=== PATIENT | male | born 1980 | race Hispanic/Latino ===

== ENCOUNTER 2020-11-14 10:04 | Inpatient (IN) | payer OTHER, SELFPAY ==
[~2020-11-14] VITALS: Ht 167.6 cm; Wt 127.0 kg
[2020-11-14 10:27] LABS: APPEARANCE,URINE Clear (CLEAR); BILIRUBIN,URINE Negative (NEGATIVE); COLOR,URINE Yellow (YELLOW); GLUCOSE, URINE (UA) Negative (NEGATIVE); KETONES,URINE Negative (NEGATIVE); LEUKOCYTE ESTERASE ,URINE Negative (NEGATIVE); NITRATE,URINE Negative (NEGATIVE); OCCULT BLOOD,URINE Negative (NEGATIVE); PH,URINE 5.5 (5.0-8.0); PROTEIN,URINE POS 2+ mg/dL (NEGATIVE)
[2020-11-14 10:32] LABS: BASOPHILS % (AUTO) 0.2 % (0.0-5.0); EOSINOPHILS % (AUTO) 0.2 % (0.0-8.0); HEMATOCRIT 43.2 % (42-54); LYMPHOCYTES % (AUTO) 17.6 % (21.0-51.0); MEAN CORPUSCULAR HGB CONC 33.3 g/dL (32.0-36.0); MEAN CORPUSCULAR VOLUME 92.9 fL (79-99); NEUTROPHILS % (AUTO) 74.7 % (40.0-77.0); PLATELET COUNT (AUTO) 206 K/uL (130-400); RED BLOOD CELL COUNT(AUTO) 4.65 MIL/uL (4.50-6.20); RED CELL DISTRIBUTION WIDTH 13.2 % (11.0-15.5); WHITE BLOOD COUNT (AUTO) 5.9 K/uL (4.8-10.8)
[2020-11-14 10:44] LABS: CREATININE 1.8 mg/dL (0.5-1.5); POTASSIUM 4.2 mmol/L (3.5-5.1)
[2020-11-14 10:46] LABS: ALBUMIN 3.4 g/dL (3.5-5.0); BILIRUBIN,TOTAL 0.6 mg/dL (0.2-1.0); TOTAL PROTEIN, SERUM 7.9 g/dL (6.0-8.3)
[2020-11-14 10:56] LABS: BACTERIA,URINE Few /HPF (None Seen); RBC,URINE 0-1 /HPF (0-1); WBC,URINE 0-1 /HPF (0-1)
[2020-11-14 10:57] LABS: SQUAMOUS EPITHELIAL CELL,UR 0-2 /HPF (0-2)
[2020-11-14 11:10] LABS: AMPHET/METH SCREEN,URINE NEGATIVE (NEGATIVE); BARBITURATE SCREEN, URINE NEGATIVE (NEGATIVE); BENZODIAZEPINES SCREEN,URINE NEGATIVE (NEGATIVE); CANNABINOID SCREEN,URINE NEGATIVE (NEGATIVE); COCAINE SCREEN,URINE NEGATIVE (NEGATIVE); OPIATE SCREEN,URINE NEGATIVE (NEGATIVE); PHENCYCLIDINE SCREEN,URINE NEGATIVE (NEGATIVE)
[2020-11-14 14:21] VITALS: BP 135/78
[2020-11-14] MEDS ORDERED: ONDANSETRON HCL 4 MG/2 ML VIAL IV PRN (14:45)
[2020-11-14] MEDS ORDERED: ACETAMINOPHEN 325 MG TAB PO PRN ×2 (14:45)
[2020-11-14] MEDS ORDERED: LACTULOSE 20 GM/30 ML UDCUP PO PRN (14:45)
[2020-11-14] MEDS ORDERED: SODIUM CHLORIDE 0.9% 1000ML 1,000 ML IV SCH (14:45)
[2020-11-14] MEDS ORDERED: PHARMACY COMMUNICATION MISC SCH ×2 (15:00→16:30)
[2020-11-14] MEDS ORDERED: HYDROMORPHONE 0.5 MG SYG (0.5MG/0.5ML) IV PRN (15:15)
[2020-11-14] MEDS: HEPARIN SODIUM 5000UNIT/ML 1ML VIAL SQ SCH (15:20)
[2020-11-14] MEDS: CEFTRIAXONE SODIUM 1 GM IVP SCH (15:20)
[2020-11-14] MEDS ORDERED: ERGOCALCIFEROL (VITAMIN D2) 50,000 UNIT CAPSULE PO ONE (16:00)
[2020-11-14 16:01] LABS: INR 1.1 (0.85-1.15); PROTHROMBIN TIME 11.9 SEC (9.6-11.6)
[2020-11-14 16:02] LABS: PARTIAL THROMBOPLASTIN TIME 29.6 SEC (26.3-35.5)
[2020-11-14 17:13] VITALS: BP 130/80
[2020-11-14 19:00] VITALS: BP 129/85
[2020-11-14] MEDS: FAMOTIDINE 20MG TAB 20 MG TAB PO SCH (20:50)
[2020-11-14 23:00] VITALS: BP 147/90
[2020-11-15] VITALS (8 sets, daily range): BP systolic 122–142; BP diastolic 64–83
[2020-11-15] MEDS: HEPARIN SODIUM 5000UNIT/ML 1ML VIAL SQ SCH ×2 (02:53→14:29)
[2020-11-15 05:10] LABS: BASOPHILS % (AUTO) 0.2 % (0.0-5.0); EOSINOPHILS % (AUTO) 0.2 % (0.0-8.0); HEMATOCRIT 41.1 % (42-54); LYMPHOCYTES % (AUTO) 31.4 % (21.0-51.0); MEAN CORPUSCULAR HEMOGLOBIN 29.9 pg (27.0-33.0); MEAN CORPUSCULAR HGB CONC 32.8 g/dL (32.0-36.0); MEAN CORPUSCULAR VOLUME 91.1 fL (79-99); MONOCYTES % (AUTO) 8.7 % (3.0-13.0); NEUTROPHILS % (AUTO) 59.3 % (40.0-77.0); PLATELET COUNT (AUTO) 194 K/uL (130-400); RED BLOOD CELL COUNT(AUTO) 4.51 MIL/uL (4.50-6.20); RED CELL DISTRIBUTION WIDTH 13.1 % (11.0-15.5); WHITE BLOOD COUNT (AUTO) 4.4 K/uL (4.8-10.8)
[2020-11-15 05:19] LABS: CREATININE 1.5 mg/dL (0.5-1.5)
[2020-11-15] MEDS: ZINC SULFATE 220 CAPSULE PO SCH (08:01)
[2020-11-15] MEDS: ASCORBIC ACID 500 MG TAB PO SCH (08:01)
[2020-11-15] MEDS ORDERED: PHARMACY COMMUNICATION MISC SCH (12:30)
[2020-11-15] MEDS: CEFTRIAXONE SODIUM 1 GM IVP SCH (14:28)
[2020-11-15] MEDS: FAMOTIDINE 20MG TAB 20 MG TAB PO SCH (20:50)
[2020-11-16] MEDS: HEPARIN SODIUM 5000UNIT/ML 1ML VIAL SQ SCH (02:20)
[2020-11-16 03:00] VITALS: BP 156/64
[2020-11-16 04:14] LABS: BASOPHILS % (AUTO) 0.2 % (0.0-5.0); HEMATOCRIT 40.4 % (42-54); LYMPHOCYTES % (AUTO) 31.6 % (21.0-51.0); MEAN CORPUSCULAR HEMOGLOBIN 29.9 pg (27.0-33.0); MEAN CORPUSCULAR HGB CONC 32.9 g/dL (32.0-36.0); MEAN CORPUSCULAR VOLUME 90.8 fL (79-99); MONOCYTES % (AUTO) 8.4 % (3.0-13.0); NEUTROPHILS % (AUTO) 58.4 % (40.0-77.0); PLATELET COUNT (AUTO) 213 K/uL (130-400); RED BLOOD CELL COUNT(AUTO) 4.45 MIL/uL (4.50-6.20); RED CELL DISTRIBUTION WIDTH 13.1 % (11.0-15.5); WHITE BLOOD COUNT (AUTO) 4.9 K/uL (4.8-10.8)
[2020-11-16 04:29] LABS: BILIRUBIN,TOTAL 0.4 mg/dL (0.2-1.0); CREATININE 1.6 mg/dL (0.5-1.5); POTASSIUM 3.9 mmol/L (3.5-5.1); TOTAL PROTEIN, SERUM 7.2 g/dL (6.0-8.3)
[2020-11-16 07:23] VITALS: BP 124/46
[2020-11-16] MEDS: ASCORBIC ACID 500 MG TAB PO SCH (08:50)
[2020-11-16] MEDS: ZINC SULFATE 220 CAPSULE PO SCH (08:51)
== END 2020-11-16 12:45 | disposition home or self-care (01) | DRG 177 ==
LOC: EDH 10:04 → EDHIP 10:06 → UNDOADMIN 14:42 → 2BH 16:00
PROVIDERS: ADMIT Internal Medicine; ATTEND Internal Medicine
DX: U07.1 COVID-19 (principal); J12.82 Pneumonia due to coronavirus disease 2019; N17.9 Acute kidney failure, unspecified; Z68.42 Body mass index [BMI] 45.0-49.9, adult; Q44.6 Cystic disease of liver; Q61.2 Polycystic kidney, adult type; E66.01 Morbid (severe) obesity due to excess calories; N20.0 Calculus of kidney; D72.819 Decreased white blood cell count, unspecified; Z78.9 Other specified health status; Z82.49 Family history of ischemic heart disease and other diseases of the circulatory system
CPT/HCPCS: 36415; 71045; 71250; 74176; 80048; 80053; 80061; 80305; 81001; 82728; 83615; 83880; 85025; 85378; 85610; 85730; 86140; 87040; 87088; 87426; 87635; 93970; C9803; G0378; J0696; J1170; J1644; J7030

== ENCOUNTER 2024-11-06 11:01 | Day surgery (SDC) | payer BC ==
[~2024-11-06] VITALS: Ht 167.6 cm; Wt 129.3 kg
[2024-11-06] VITALS (11 sets, daily range): BP systolic 124–160; BP diastolic 80–103; PULSE 66–102; RESP 14–18; TEMP 97.1–97.8
[2024-11-06] MEDS ORDERED: LOSA100T59 PO (12:07)
[2024-11-06] MEDS: 0.9%NACL 1000ML 1,000 ML IV ONE (12:29)
[2024-11-06] MEDS ORDERED: proPOFol 10 MG/ML 20ML VIAL IV ONE ×2 (14:37→14:53)
[2024-11-06] MEDS ORDERED: ketaMINE 50MG/ML SYRINGE 50 MG/ML DISP.SYRIN ONE (14:43)
[2024-11-06] MEDS ORDERED: MIDAZOLAM HCL 1 MG/ML 2ML VIAL ONE (14:53)
[2024-11-06] MEDS ORDERED: GLYCOPYRROLATE 0.2 MG/ML 5 ML VIAL ONE (15:05)
[2024-11-06] MEDS ORDERED: ATROPINE 1MG SYG IVP ONE (15:07)
== END 2024-11-06 16:30 | disposition home or self-care (01) ==
LOC: ENDO 11:01 → DAH 11:01 → ENDO 16:30
PROVIDERS: ATTEND Internal Medicine Gastroenterology
DX: Z12.11 Encounter for screening for malignant neoplasm of colon (principal); K64.0 First degree hemorrhoids; K57.30 Diverticulosis of large intestine without perforation or abscess without bleeding; K29.50 Unspecified chronic gastritis without bleeding; K21.00 Gastro-esophageal reflux disease with esophagitis, without bleeding; R93.2 Abnormal findings on diagnostic imaging of liver and biliary tract; R14.0 Abdominal distension (gaseous); R10.13 Epigastric pain; R10.816 Epigastric abdominal tenderness; I12.9 Hypertensive chronic kidney disease with stage 1 through stage 4 chronic kidney disease, or unspecified chronic kidney disease; N18.9 Chronic kidney disease, unspecified; Z86.16 Personal history of COVID-19; Z83.438 Family history of other disorder of lipoprotein metabolism and other lipidemia; Z83.3 Family history of diabetes mellitus; Z82.49 Family history of ischemic heart disease and other diseases of the circulatory system
CPT/HCPCS: 88305; 88312; 43239; 45378; J7030; J0461; J2250; J2704 ×2; J3490 ×2; A4620; A4215 ×2; A4223; A4657; A4222; A4221; A4663; A4606